=== PATIENT | female | born 1945 | race Caucasian/White ===

== ENCOUNTER 2016-06-16 10:09 | Emergency (ER) | payer MEDICARE, BC ==
[2016-06-16 10:33] VITALS: BP 119/56
[2016-06-16] MEDS ORDERED: ceFAZolin 500 MG VIAL(*) 500 MG VIAL IM ONE ×2 (10:42)
[2016-06-16] MEDS ORDERED: Phenazopyridine TAB* 100 MG PO ONE (10:50)
--- NOTE | 2016-06-16 10:57 | UC ---
Complaint Female HPI - HPI Summary HPI Summary: 70F dysuria and increase frequency and urgency for week. She had flu last week with increase urination resolving . She has history of UTI and symptom smiliar. She denies any flank pain, fever, abdominal pain, or hematuria. PMH of hypothyroidism, HTN, anxiety, sinus infection - History Of Current Complaint Chief Complaint: UCGU Stated Complaint: BURNING URINATION Time Seen by Provider: 06/16/16 10:49 - Allergies/Home Medications Allergies/Adverse Reactions: Allergies Allergy/AdvReac Type Severity Reaction Status Date / Time Codeine Allergy Intermediate Vomiting Verified 04/16/16 10:59 PMH/Surg Hx/FS Hx/Imm Hx Endocrine History Of: Reports: Thyroid Disease - hypo Cardiovascular History Of: Reports: Hypertension Psychological History Of: Reports: Anxiety, Depression Cancer History Of: Denies: Breast Cancer - Surgical History Surgical History: Yes Surgery Procedure, Year, and Place: gall bladder removed at 17 years old. polyp removed from colon 15 years ago - Family History Known Family History: Positive: Cardiac Disease - Social History Alcohol Use: Weekly Alcohol Amount: 5 glasses of wine weekly Substance Use Type: None Smoking Status (MU): Former Smoker Have You Smoked in the Last Year: No When Did the Patient Quit Smoking/Using Tobacco: 20 years ago Review of Systems Constitutional: Negative Cardiovascular: Negative Gastrointestinal: Negative Genitourinary: Dysuria, Frequency, Urgency All Other Systems Reviewed And Are Negative: Yes Physical Exam Triage Information Reviewed: Yes Appearance: Well-Appearing Vital Signs: Initial Vital Signs Temp 97.3 F 06/16/16 10:27 Pulse 73 06/16/16 10:27 Resp 16 06/16/16 10:27 BP 119/56 06/16/16 10:27 Pulse Ox 98 06/16/16 10:27 Vital Signs Reviewed: Yes Eyes: Positive: Conjunctiva Clear ENT: Positive: Normal ENT inspection, Pharynx normal, TMs normal Respiratory: Positive: Lungs clear, Normal breath sounds Cardiovascular: Positive: RRR Abdomen Description: Positive: Nontender, Soft Bowel Sounds: Positive: Present Complaint Female Dx - Course Course Of Treatment: 70F presents with symptoms of UTI. has had UTI in past with similiar symptoms. no flank pain or hematuria. PE normal. U/A pos leuk esterase, will treat with bactrim, patient agrees with plan - Differential Dx/Diagnosis Differential Diagnosis/HQI/PQRI: Renal Colic, Ureteral Stone, Urinary Tract Infection Provider Diagnoses: urinary tract infection Discharge - Discharge Plan Condition: Stable Disposition: HOME Prescriptions: Phenazopyridine TAB* [Pyridium TAB*] 100 mg PO TID #10 tab Sulfamethox/Trimethoprim DS* [Bactrim DS 800/160 TAB*] 1 tab PO BID #9 tab Patient Education Materials: Phenazopyridine (By mouth), Urinary Tract Infection in Women (ED) Referrals: Ashlyn Urena MD [Primary Care Provider] - Additional Instructions: Take Bactrim twice a day for 5 days, first dose given in UC so start this PM Take pyridium two tablets three times a day with food, first dose given in UC Follow up with primary in 7 days Return to ED if develop fever, severe abdominal pain, nausea, or vomiting or any new or worsening symptoms
[2016-06-16] MEDS ORDERED: Sulfamethox/Trimethoprim DS 800/160* TAB PO ONE (11:23)
== END 2016-06-16 11:30 | disposition home or self-care (01) ==
LOC: UCEAST 10:09
DX: N39.0 Urinary tract infection, site not specified (principal); Z87.891 Personal history of nicotine dependence; Z88.5 Allergy status to narcotic agent
CPT/HCPCS: 81002; 87086; 99212; A9270-GY; G0463

== ENCOUNTER 2017-04-07 15:03 | Emergency (ER) | payer MEDICARE, BC ==
[2017-04-07 15:10] VITALS: BP 98/84
--- NOTE | 2017-04-07 16:08 | UC ---
Jarred Tabares Nikita, scribed for Pau Martinez MD on 04/07/17 at 1552 . Respiratory Complaint HPI - HPI Summary HPI Summary: This patient is a 71 year old F presenting to [facility] with a chief complaint of a cough since 03/23/17. Pt was on a cruise to the [place] when she devloped cough. The CC is described as coughing with yellow sputum and constant. Symptoms aggravated by nothing. Symptoms alleviated by nothing. Patient reports chills, wheezing, SOB, green rhinorrhea, sinus fullness, decreased appetite, and fatigue. Patient denies fever, N/V, ear pain, painful glands (resolved), fever. Pt reports decreased appetitis. Pt has taken acetaminophen and Benadryl. Pt states is exhausted, recently moved to new house. Patients medication reviewed this visit. - History of Current Complaint Chief Complaint: UCRespiratory Stated Complaint: URI Time Seen by Provider: 04/07/17 15:44 Hx Obtained From: Patient Onset/Duration: Sudden Onset, Lasting Weeks, Still Present Timing: Constant Character: Cough: Productive, Sputum Description: - yellow Aggravating Factors: Nothing Alleviating Factors: Nothing Associated Signs And Symptoms: Positive: Wheezing - Patient reports chills, wheezing, SOB, rhinorrhea, decreased appetite, and fatigue. Patient denies fever , N/V, ear pain, painful glands (resolved), fever, and sinus congestion. - Allergies/Home Medications Allergies/Adverse Reactions: Allergies Allergy/AdvReac Type Severity Reaction Status Date / Time Codeine Allergy Intermediate Vomiting Verified 04/07/17 15:11 PMH/Surg Hx/FS Hx/Imm Hx Endocrine History: Thyroid Disease Cardiovascular History: Hypertension - Surgical History Surgical History: Yes Surgery Procedure, Year, and Place: gall bladder removed at 17 years old. polyp removed from colon 15 years ago - Family History Known Family History: Positive: Other Family History: Denies DM, CAD - Social History Lives: With Family Alcohol Use: Occasionally Alcohol Amount: 5 glasses of wine weekly Substance Use Type: Prescribed Smoking Status (MU): Former Smoker Have You Smoked in the Last Year: No When Did the Patient Quit Smoking/Using Tobacco: 20 years ago Review of Systems Constitutional: Chills, Fatigue, Other - denies fever ENT: Nasal Discharge, Other - painful glands; denies sinus congestion, ear pain Respiratory: Shortness Of Breath, Cough - productive with yellow sputum, Other - wheezing Gastrointestinal: Other - decreased appetite; denies N/V All Other Systems Reviewed And Are Negative: Yes Physical Exam Triage Information Reviewed: Yes Appearance: Well-Appearing, No Pain Distress, Well-Nourished Vital Signs: Initial Vital Signs Temp 96.9 F 04/07/17 15:07 Pulse 77 04/07/17 15:07 Resp 18 04/07/17 15:07 BP 98/84 04/07/17 15:07 Pulse Ox 98 04/07/17 15:07 Vital Signs Reviewed: Yes Eye Exam: Normal Eyes: Positive: Conjunctiva Clear ENT Exam: Normal ENT: Positive: Hearing grossly normal, Nasal congestion, Nasal drainage, Sinus tenderness, Other - turbinates inflammed, + PND Dental Exam: Normal Neck exam: Normal Neck: Positive: Supple, Nontender, No Lymphadenopathy Respiratory Exam: Normal Respiratory: Positive: Chest non-tender, Lungs clear, Normal breath sounds, No respiratory distress, No accessory muscle use. Negative: Wheezing Cardiovascular Exam: Normal Cardiovascular: Positive: RRR, No Murmur, Pulses Normal Abdominal Exam: Normal Abdomen Description: Positive: Nontender, No Organomegaly, Soft Bowel Sounds: Positive: Present Musculoskeletal Exam: Normal Musculoskeletal: Positive: Strength Intact Neurological Exam: Normal Neurological: Positive: Alert Psychological Exam: Normal Skin Exam: Normal UC Diagnostic Evaluation - Laboratory O2 Sat by Pulse Oximetry: 98 Respiratory Course/Dx - Course Course Of Treatment: Pt presents with cough, sinus congestion, PND since 03/23. Pt states feels fatigue, decreased po and wants to get better for family. Pt with stable VS. boggy turnibates with PND. Will givce Rx zithromax. nasonex - pt has previously uses. secretion hygeine. return precautions. Pt comfortable and in agreement with plan - Differential Dx/Diagnosis Provider Diagnoses: bronchitis. sinusitis Discharge - Discharge Plan Condition: Stable Disposition: HOME Prescriptions: Azithromycin TAB* [Zithromax TAB (Z-DOTTIE) 250 mg #6 tabs] 2 tab PO .TODAY, THEN 1 DAILY #1 dottie Mometasone Furoate (Nasal) [Nasonex] 50 mcg NA DAILY #1 spr Patient Education Materials: Acute Bronchitis (ED) Referrals: Ashlyn Urena MD [Primary Care Provider] - Additional Instructions: - Stay well hydrated. Drink plenty of non-alcoholic, non-caffinated beverages. - After you have been on antibiotics for 2 days - change your toothbrush and your pillowcase. These infections are spread by secretions - do NOT share eating or drinking utensils - clean items you share with other people such as cell phones, computer mouse, TV remote, computer tablets, etc - Alternate ibuprofen (Advil, Motrin) 600mg and Tylenol every 3 hours for pain or fever. Take with food. Do NOT take for more than 4-5 days. - Use nasal spray as instructed - Okay to take over the counter medication for coughing - Call your doctor to schedule a follow-up appointment. Call your doctor or return with questions or concerns The documentation as recorded by the Jarred zambrano Nikita accurately reflects the service I personally performed and the decisions made by , Pau Martinez MD.
== END 2017-04-07 16:16 | disposition home or self-care (01) ==
LOC: UCEAST 15:03
DX: J40 Bronchitis, not specified as acute or chronic (principal); J32.9 Chronic sinusitis, unspecified
CPT/HCPCS: 99212; G0463

== ENCOUNTER 2018-11-19 09:34 | Emergency (ER) | payer MEDICARE, BC ==
[2018-11-19 09:42] VITALS: BP 115/60
--- NOTE | 2018-11-19 10:32 | UC ---
Bite Injury/Animal HPI - HPI Summary HPI Summary: Her vaccinated cat bit her L forearm last night b/c cat was scared of fireworks. Does not usually bite. up to date w/ vaccines. cristina to move her L arm. - History of Current Complaint Chief Complaint: UCBiteInjury Stated Complaint: CAT BITE Time Seen by Provider: 11/19/18 10:25 Hx Obtained From: Patient Pain Intensity: 2 Pain Scale Used: 0-10 Numeric Type of Bite: Pet - cat Character: Puncture Associated Signs And Symptoms: Positive: Erythema, Swelling. Negative: Fever, Limited ROM - Allergies/Home Medications Allergies/Adverse Reactions: Allergies Allergy/AdvReac Type Severity Reaction Status Date / Time codeine Allergy Vomiting Verified 11/19/18 09:43 PMH/Surg Hx/FS Hx/Imm Hx Endocrine History: Thyroid Disease Cardiovascular History: Cardiac Disease - Surgical History Surgical History: Yes Surgery Procedure, Year, and Place: gall bladder removed at 17 years old. polyp removed from colon 15 years ago. bunionectomy 1980s [place] [facility] [place]. [place], [facility] [place] - Family History Known Family History: Positive: Cardiac Disease, Other Family History: Denies DM, CAD - Social History Alcohol Use: Daily Alcohol Amount: 1 per day Substance Use Type: None Smoking Status (MU): Former Smoker Amount Used/How Often: pack a day for 25 years Have You Smoked in the Last Year: No When Did the Patient Quit Smoking/Using Tobacco: Review of Systems All Other Systems Reviewed And Are Negative: Yes Constitutional: Positive: Negative Skin: Positive: Other - L forearm Musculoskeletal: Negative: Edema, Myalgia Neurological: Negative: Paresthesia Physical Exam Triage Information Reviewed: Yes Appearance: Well-Appearing Vital Signs: Initial Vital Signs Temp 98.2 F 11/19/18 09:40 Pulse 86 11/19/18 09:40 Resp 16 11/19/18 09:40 BP 115/60 11/19/18 09:40 Pulse Ox 98 11/19/18 09:40 Vital Signs Reviewed: Yes Neck: Positive: No Lymphadenopathy Respiratory Exam: Normal Cardiovascular Exam: Normal Musculoskeletal: Positive: Strength Intact - L upper arm, ROM Intact - L wrist, elbow, hands, fingers, No Edema Skin: Positive: Significant Lesion(s) - L FOREARM: approx 3.5 inc. of erythematous area and two healed puncture bites. Nontender, not indurated. No other open areas. Bite Injury Course/Dx - Course Course Of Treatment: One day of swelling and erythema after her pet cat bit her. Vaccinated pet and hers are up to date. Plan is tx w/ Augmentin but she will return if worsening. No change to function of LUE. vitals good. - Differential Dx/Diagnosis Provider Diagnosis: Cat bite, Cellulitis Discharge - Sign-Out/Discharge Documenting (check all that apply): Patient Departure All imaging exams completed and their final reports reviewed: No Studies - Discharge Plan Condition: Good Disposition: HOME Prescriptions: Amoxicillin/Clavulanate TAB* [Augmentin TAB 875*] 875 mg PO BID 10 Days #20 tab Patient Education Materials: Animal Bite (ED) Referrals: Ashlyn Urena MD [Primary Care Provider] - Additional Instructions: If worsening please return. - Billing Disposition and Condition Condition: GOOD Disposition: Home
== END 2018-11-19 10:56 | disposition home or self-care (01) ==
LOC: UCEAST 09:34
DX: S51.852A Open bite of left forearm, initial encounter (principal); L03.114 Cellulitis of left upper limb; W55.01XA Bitten by cat, initial encounter; Y92.019 Unspecified place in single-family (private) house as the place of occurrence of the external cause; E07.9 Disorder of thyroid, unspecified; Z88.5 Allergy status to narcotic agent; Z87.891 Personal history of nicotine dependence
CPT/HCPCS: 99212; G0463

== ENCOUNTER → 2019-03-22 07:05 | Day surgery (SDC) | payer MEDICARE, BC ==
[~2019-03-22 07:05] MED LIST: Buffered Lidocaine 1% SYRIN* 1 ML/SYRINGE INTRADERM ONE; Bupivacaine 0.25% SDV PF* 10 ML VIAL INJ ONE; Lactated Ringers 1000 ML Bag* 1,000 ML IV SCH; Lidocaine 1% INJ* 10 MG/ML 30 ML SDV ONE; Lidocaine 2% PF * 5 ML VIAL ONE; Lidocaine 2% PF* 10 ML AMP ONE; Lidocaine 2% w/ EPI 1:200,000* 20 ML SDV VIAL ONE; Midazolam* 1 MG/ML 2 ML VIAL (2 MG) ONE; Naloxone* 0.4 MG/ML 1 ML VIAL IV PRN; Propofol* 10 MG/ML 20 ML BTL ONE; ceFAZolin 2 GM in NS PREMIX(*) 2 GM/100 ML BAG IVPB ONE; fentaNYL* 50 MCG/ML 2 ML VIAL (100 MCG VIAL) ONE
[2019-03-22 12:33] VITALS: BP 138/76
--- NOTE | 2019-03-23 01:17 | OP ---
DATE OF OPERATION: 03/22/19 - SDS DATE OF : 43 SURGEON: Ryan Devine MD. TROLLEY OPERATOR: Nikko Acevedo PA-C. 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 OPERATIVE PROCEDURE: Fusion, left first metatarsophalangeal joint, with proximal interphalangeal joint resection arthroplasty, #2. DESCRIPTION OF PROCEDURE: The patient was taken to the operating room where ankle Esmarch was used. I made a longitudinal incision over the first MTP joint. The ball and cup reamers were used of the Arthrex kit, 18 mm diameter, to prepare the joint for fusion. We placed a 3.0 mm x 26 mm length lag screw from medial to lateral with the toe in a neutral position. We then fashioned the left medium sized fusion plate over the dorsum of the joint, fixing this with a combination of locking and non-locking screws. X-ray intraoperatively showed satisfactory position. We closed the deep tissues over the plate with 2- 0 Monocryl subcu, 3-0 Monocryl and nylon for the skin. We then made a transverse elliptical incision over the second PIP joint. The condyles of the PIP joint were removed from the second toe using a narrow sagittal blade. We then pinned the toe in neutral extension with the 0.062 C-wire. This dorsal wound was irrigated and then closed with interrupted nylon sutures. [id number]/[facility] #: [id number] [facility]
== END | disposition home or self-care (01) ==
LOC: OR 07:05
PROVIDERS: ATTEND Orthopaedic Surgery
DX: M20.12 Hallux valgus (acquired), left foot (principal); M20.42 Other hammer toe(s) (acquired), left foot; M19.072 Primary osteoarthritis, left ankle and foot; E78.00 Pure hypercholesterolemia, unspecified; K21.9 Gastro-esophageal reflux disease without esophagitis; E03.9 Hypothyroidism, unspecified; F41.8 Other specified anxiety disorders; Z87.891 Personal history of nicotine dependence
CPT/HCPCS: 76000; C1713; J0690; J2001; J2250; J2704; J3010; J3490

== ENCOUNTER 2024-03-12 14:30 | Inpatient (IN) ==
[2024-03-12] MEDS: fentaNYL 100 mcg/2 ml 50 MCG/ML VIAL IV SLOW PU ONE ×2 (15:01→19:16)
[2024-03-12] MEDS: Ondansetron 4 mg VIAL 2 MG/ML 2 ml VIAL IV ONE ×3 (15:36→20:39)
[2024-03-12] MEDS: Morphine 2 MG/ML SYRINGE IV ONE (21:24)
[2024-03-12] MEDS: Prochlorperazine 5 mg/ml 2 ml VIAL (10 mg) IV PRN (22:16)
[2024-03-13] MEDS: Ondansetron 4 mg VIAL 2 MG/ML 2 ml VIAL IV ONE (11:11)
[2024-03-13] MEDS ORDERED: HYDROmorphone 0.5 MG/0.5 ML SYRINGE IV PRN (14:20)
[2024-03-13] MEDS ORDERED: HYDROmorphone 1 MG/1 ML SYRINGE IV SLOW PU PRN (14:41)
[2024-03-13] MEDS: Senna TAB 8.6 mg TAB PO SCH ×2 (14:55→16:34)
[2024-03-13] MEDS: HYDROmorphone 0.5 MG/0.5 ML SYRINGE IV PRN (14:56)
[2024-03-13] MEDS: DULoxetine DR 60 mg CAP PO SCH (16:34)
[2024-03-13] MEDS ORDERED: Magnesium Hydroxide LIQ 30 ML UDC PO PRN (17:09)
[2024-03-13] MEDS: Enoxaparin 40 MG/0.4 ML SYR SUBCUT SCH (18:52)
[2024-03-13] MEDS ORDERED: HYDROmorphone 1 MG/1 ML SYRINGE IV SLOW PU SCH (21:00)
[2024-03-13] MEDS ORDERED: Simvastatin 10 mg TAB (NF) PO SCH (21:00)
[2024-03-14 05:49] LABS: ABS Eosinophils 0.3 10^3/uL (0.0-0.5); ABS Lymphocytes 1.6 10^3/uL (1.0-4.8); ABS Monocytes 0.5 10^3/uL (0.0-0.9); ABS Neutrophils 5.5 10^3/uL (1.5-7.6); ABS Nucleated RBC 0.01 10^3/ul; Eosinophil % 3.4 %; Hematocrit 34.7 % (35-45); Hemoglobin 11.7 g/dL (11.5-14.3); Lymphocyte % 20.4 %; Mean Corpuscular Hemoglobin 32.3 pg (27-33); Mean Corpuscular Hgb Conc 33.8 g/dL (31-36); Mean Corpuscular Volume 95.5 fL (80-97); Mean Platelet Volume 8.9 fL (7.5-11.2); Nucleated Red Blood Cells % 0.1 %/100WBC (0.0-0.8); Platelet Count 241 10^3/uL (150-450); Red Blood Count 3.63 10^6/uL (3.63-4.92); Red Cell Distribution Width 14.3 % (12-17); White Blood Count 7.9 10^3/uL (3.8-11.8)
[2024-03-14 06:04] LABS: Potassium 3.4 mmol/L (3.5-5.0)
[2024-03-14 06:05] LABS: Calcium 8.5 mg/dL (8.6-10.3); Creatinine, Serum 0.62 mg/dL (0.51-0.95); eGFR CKD-EPI 90.5 (>60)
[2024-03-14] MEDS: HYDROmorphone 0.5 MG/0.5 ML SYRINGE IV PRN (12:59)
[2024-03-14] MEDS: Potassium Chlor 20 meq TAB.ER PO ONE (15:08)
[2024-03-14] MEDS: Lactated Ringers 1000 ml BAG 1,000 ML IV ONE (16:10)
[2024-03-14] MEDS: KCL 10 MEQ/50 ML IVPREMIX 10 MEQ/50 ML BAG IV SCH (16:10)
[2024-03-15 06:31] LABS: ABS Basophils 0.1 10^3/uL (0.0-0.1); ABS Eosinophils 0.2 10^3/uL (0.0-0.5); ABS Lymphocytes 1.6 10^3/uL (1.0-4.8); ABS Monocytes 0.6 10^3/uL (0.0-0.9); ABS Neutrophils 5.9 10^3/uL (1.5-7.6); Eosinophil % 2.5 %; Hemoglobin 10.8 g/dL (11.5-14.3); Lymphocyte % 18.9 %; Mean Corpuscular Hemoglobin 32.3 pg (27-33); Mean Corpuscular Hgb Conc 33.9 g/dL (31-36); Mean Corpuscular Volume 95.1 fL (80-97); Mean Platelet Volume 8.5 fL (7.5-11.2); Platelet Count 226 10^3/uL (150-450); Red Blood Count 3.36 10^6/uL (3.63-4.92); Red Cell Distribution Width 13.8 % (12-17); White Blood Count 8.4 10^3/uL (3.8-11.8)
[2024-03-15 06:55] LABS: Calcium 8.2 mg/dL (8.6-10.3); Creatinine, Serum 0.47 mg/dL (0.51-0.95); Magnesium 1.8 mg/dL (1.9-2.7); Potassium 3.6 mmol/L (3.5-5.0); eGFR CKD-EPI 96.8 (>60)
[2024-03-15] MEDS: Magnesium Sulfate IV 1GM/100ML 1 GM/100 ML BAG IV ONE (08:41)
[2024-03-15] MEDS: Potassium Chlor 20 meq TAB.ER PO ONE (08:45)
[2024-03-15] MEDS ORDERED: Midazolam 2 mg/2 ml VIAL 1 mg/ml 2 ml VIAL (2 mg) ONE (15:39)
[2024-03-15] MEDS ORDERED: fentaNYL 100 mcg/2 ml 50 MCG/ML VIAL ONE (15:39)
[2024-03-15] MEDS ORDERED: Rocuronium 50 mg VIAL 10 mg/ml 5 ml VIAL (50 mg) ONE (15:41)
[2024-03-15] MEDS: Enoxaparin 40 MG/0.4 ML SYR SUBCUT SCH (21:00)
[2024-03-15] MEDS: Nystatin TOP POWDER 15 GM BTL TOPICAL SCH (21:02)
[2024-03-16 05:37] LABS: ABS Basophils 0.2 10^3/uL (0.0-0.1); ABS Eosinophils 0.3 10^3/uL (0.0-0.5); ABS Lymphocytes 1.7 10^3/uL (1.0-4.8); ABS Monocytes 0.6 10^3/uL (0.0-0.9); ABS Neutrophils 4.7 10^3/uL (1.5-7.6); Eosinophil % 4.1 %; Hematocrit 33.4 % (35-45); Hemoglobin 11.6 g/dL (11.5-14.3); Lymphocyte % 22.4 %; Mean Corpuscular Hemoglobin 32.7 pg (27-33); Mean Corpuscular Hgb Conc 34.6 g/dL (31-36); Mean Corpuscular Volume 94.7 fL (80-97); Mean Platelet Volume 8.5 fL (7.5-11.2); Platelet Count 229 10^3/uL (150-450); Red Blood Count 3.53 10^6/uL (3.63-4.92); Red Cell Distribution Width 14.2 % (12-17); White Blood Count 7.5 10^3/uL (3.8-11.8)
[2024-03-16 06:12] LABS: Calcium 8.4 mg/dL (8.6-10.3); Creatinine, Serum 0.42 mg/dL (0.51-0.95); Magnesium 1.9 mg/dL (1.9-2.7); Potassium 3.3 mmol/L (3.5-5.0); eGFR CKD-EPI 99.4 (>60)
[2024-03-16] MEDS ORDERED: Potassium Chlor 20 meq TAB.ER PO ONE (08:06)
[2024-03-16] MEDS ORDERED: Enoxaparin 40 MG/0.4 ML SYR SUBCUT SCH (09:00)
[2024-03-16] MEDS: KCL 10 MEQ/50 ML IVPREMIX 10 MEQ/50 ML BAG IV SCH (09:13)
[2024-03-16] MEDS: Potassium Chloride LIQUID 20 MEQ/15 ML LIQUID PO ONE ×2 (10:11→12:37)
[2024-03-17 06:33] LABS: Calcium 8.6 mg/dL (8.6-10.3); Creatinine, Serum 0.43 mg/dL (0.51-0.95); Potassium 3.8 mmol/L (3.5-5.0); eGFR CKD-EPI 98.9 (>60)
[2024-03-18 05:52] LABS: ABS Basophils 0.1 10^3/uL (0.0-0.1); ABS Eosinophils 0.5 10^3/uL (0.0-0.5); ABS Lymphocytes 1.7 10^3/uL (1.0-4.8); ABS Monocytes 0.9 10^3/uL (0.0-0.9); Eosinophil % 5.2 %; Hematocrit 34.1 % (35-45); Hemoglobin 11.6 g/dL (11.5-14.3); Lymphocyte % 18.5 %; Mean Corpuscular Hemoglobin 31.9 pg (27-33); Mean Corpuscular Volume 93.8 fL (80-97); Mean Platelet Volume 8.4 fL (7.5-11.2); Platelet Count 284 10^3/uL (150-450); Red Blood Count 3.63 10^6/uL (3.63-4.92); Red Cell Distribution Width 13.7 % (12-17); White Blood Count 9.1 10^3/uL (3.8-11.8)
[2024-03-18 06:08] LABS: Calcium 8.6 mg/dL (8.6-10.3); Creatinine, Serum 0.5 mg/dL (0.51-0.95); Potassium 3.7 mmol/L (3.5-5.0); eGFR CKD-EPI 95.3 (>60)
[2024-03-19 06:30] LABS: Hematocrit 34.7 % (35-45); Hemoglobin 11.6 g/dL (11.5-14.3); Mean Corpuscular Hemoglobin 31.5 pg (27-33); Mean Corpuscular Hgb Conc 33.5 g/dL (31-36); Platelet Count 298 10^3/uL (150-450); Red Blood Count 3.69 10^6/uL (3.63-4.92); Red Cell Distribution Width 13.9 % (12-17); White Blood Count 7.7 10^3/uL (3.8-11.8)
[2024-03-19 06:46] LABS: Calcium 8.5 mg/dL (8.6-10.3); Creatinine, Serum 0.5 mg/dL (0.51-0.95); Magnesium 1.9 mg/dL (1.9-2.7); Potassium 3.7 mmol/L (3.5-5.0); eGFR CKD-EPI 95.3 (>60)
[2024-03-19] MEDS ORDERED: Lidocaine 1% w EPI 1:200,000 SDV 30 ML VIAL ONE (10:11)
[2024-03-19] MEDS ORDERED: Rocuronium 50 mg VIAL 10 mg/ml 5 ml VIAL (50 mg) ONE (11:19)
[2024-03-19] MEDS ORDERED: Ondansetron 4 mg VIAL 2 MG/ML 2 ml VIAL ONE (11:19)
[2024-03-19] MEDS ORDERED: Propofol 10 MG/ML 20 ML BTL ONE (11:19)
[2024-03-19] MEDS ORDERED: Lidocaine 2% PF 5 ML VIAL ONE (11:19)
[2024-03-19] MEDS ORDERED: Dexamethasone IV 4 MG/ML VIAL 1 ml VIAL ONE ×2 (11:19→12:01)
[2024-03-19] MEDS ORDERED: ceFAZolin 2 GM PREMIX 2 GM/50 ML BAG ONE (11:47)
[2024-03-19] MEDS ORDERED: fentaNYL 100 mcg/2 ml 50 MCG/ML VIAL ONE (12:01)
[2024-03-19] MEDS ORDERED: ROPIVACAINE 5 MG/ML 30 ML BTL (0.5%) ONE (12:01)
[2024-03-19] MEDS ORDERED: Phenylephrine IV 10 MG/ML 1 ml VIAL ONE (14:25)
[2024-03-19] MEDS ORDERED: Acetaminophen IV 1 GM/100ML 1,000 MG/100 ML BAG IV ONE (15:18)
[2024-03-19] MEDS: NS 0.9% 1000 ml BAG 1,000 ML IV SCH (17:30)
[2024-03-19] MEDS: ceFAZolin 2 GM PREMIX 2 GM/50 ML BAG IV SCH (23:11)
[2024-03-20 06:37] LABS: ABS Lymphocytes 1.1 10^3/uL (1.0-4.8); ABS Monocytes 0.5 10^3/uL (0.0-0.9); ABS Neutrophils 8.5 10^3/uL (1.5-7.6); ABS Nucleated RBC 0.01 10^3/ul; Hematocrit 31.7 % (35-45); Hemoglobin 10.7 g/dL (11.5-14.3); Lymphocyte % 10.6 %; Mean Corpuscular Hemoglobin 32.1 pg (27-33); Mean Corpuscular Hgb Conc 33.9 g/dL (31-36); Mean Corpuscular Volume 94.6 fL (80-97); Mean Platelet Volume 8.8 fL (7.5-11.2); Nucleated Red Blood Cells % 0.1 %/100WBC (0.0-0.8); Platelet Count 306 10^3/uL (150-450); Red Blood Count 3.35 10^6/uL (3.63-4.92); White Blood Count 10.2 10^3/uL (3.8-11.8)
[2024-03-20 06:55] LABS: Creatinine, Serum 0.4 mg/dL (0.51-0.95); Magnesium 1.9 mg/dL (1.9-2.7); Potassium 3.9 mmol/L (3.5-5.0); eGFR CKD-EPI 100.6 (>60)
[2024-03-20] MEDS: Enoxaparin 40 MG/0.4 ML SYR SUBCUT SCH (13:53)
[2024-03-21 06:26] LABS: Hematocrit 28.9 % (35-45); Hemoglobin 10.2 g/dL (11.5-14.3); Mean Corpuscular Hemoglobin 33.5 pg (27-33); Mean Corpuscular Hgb Conc 35.2 g/dL (31-36); Mean Corpuscular Volume 95.1 fL (80-97); Mean Platelet Volume 8.2 fL (7.5-11.2); Platelet Count 326 10^3/uL (150-450); Red Blood Count 3.04 10^6/uL (3.63-4.92); White Blood Count 10.6 10^3/uL (3.8-11.8)
[2024-03-21 06:46] LABS: Creatinine, Serum 0.44 mg/dL (0.51-0.95); Magnesium 1.8 mg/dL (1.9-2.7); Potassium 3.6 mmol/L (3.5-5.0); eGFR CKD-EPI 98.3 (>60)
[2024-03-21] MEDS: Magnesium Sulfate IV 1GM/100ML 1 GM/100 ML BAG IV ONE (10:36)
[2024-03-22 06:09] LABS: Creatinine, Serum 0.38 mg/dL (0.51-0.95); Magnesium 1.9 mg/dL (1.9-2.7); Potassium 3.3 mmol/L (3.5-5.0); eGFR CKD-EPI 101.9 (>60)
[2024-03-22] MEDS: KCL 20 MEQ/100 ML IVPREMIX 20 MEQ/100 ML BAG IV ONE (10:15)
[2024-03-22] MEDS: Potassium Chlor 20 meq TAB.ER PO ONE (10:26)
[2024-03-23 09:32] LABS: Rapid COVID-19 Molecular Undetected (Undetected)
[2024-03-23 10:20] VITALS: BP 117/69
== END 2024-03-23 13:13 | DRG 494 ==
LOC: ED 14:30 → EDHOLD 14:30 → SUATTDRO 03-13 14:14 → SSU 03-13 15:35 → SUATTDRO 03-14 12:00
PROVIDERS: ADMIT Internal Medicine; ATTEND Internal Medicine